=== PATIENT | male | born 1960 | race Caucasian/White ===

== ENCOUNTER 2017-12-20 02:31 | Emergency (ER) | payer SELFPAY ==
[2017-12-20] MEDS ORDERED: Metoclopramide 10 MG/2 ML SDV IVPUSH ONE (02:46)
--- NOTE | 2017-12-20 02:49 | EDM.PDOC ---
ED HPI GENERAL MEDICAL PROBLEM - General Chief Complaint: Head Injury Stated Complaint: [facility] Time Seen by Provider: 12/20/17 02:44 Source of Information: Reports: Patient History Limitations: Reports: Intoxication - History of Present Illness INITIAL COMMENTS - FREE TEXT/NARRATIVE: 56-year-old male reports that he's not sure what happened. Report by paramedics indicate that he got up from a barstool ,lost his balance and fell backwards striking his head hard on the floor. There is some suggestion of transient loss of consciousness. Patient is unsure of what happened to him. He reports that he' s been drinking very heavily tonight. Mostly beers with a few shots. Occurred in [facility]. Has some pain throughout his cervical spine but denies pain in any other body parts. There are no open lacerations . 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 He's also had a previous occipital craniotomy. Onset: Today Onset Date: 12/20/17 Onset Time: 01:20 Duration: Minutes: Location: Reports: Head, Neck Quality: Reports: Ache Severity: Mild Improves with: Reports: None Worsens with: Reports: None Context: Reports: Trauma (After negative heavy drinking and got up from his barstool lost his balance and fell backward striking his head hard on [place] floor. Reported transient loss of consciousness for 1-2 minutes.) Associated Symptoms: Reports: No Other Symptoms. 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 [Unable to Verify Home Med List] 12/20/17 [History] Past Medical History Neurological History: Reports: CVA, Other (See Below) (From cocaine use. Review 6 simple craniotomy for unclear etiology. Possibly a cerebellar hemorrhage.) Social & Family History - Living Situation & Occupation Living situation: Reports: Single Occupation: Unemployed ED ROS GENERAL - Review of Systems Review Of Systems: See Below (Unable to obtain with any certainty due to the patient being significantly intoxicated by alcohol.) Constitutional: Denies: Fever, Chills, Malaise, Weakness HEENT: Reports: Other (Days that he's had a previous stroke and that his balance is not good at times.) Respiratory: Reports: Cough, Sputum Cardiovascular: Reports: No Symptoms Endocrine: Reports: No Symptoms GI/Abdominal: Reports: Other (Some problems with gastroesophageal reflux disease.). Denies: Abdominal Pain : Reports: Frequency Musculoskeletal: Reports: Neck Pain (Chronically.), Shoulder Pain (At times), Back Pain Skin: Reports: No Symptoms Neurological: Reports: Dizziness Psychiatric: Reports: No Symptoms (States he loses his balance easily since he had brain surgery.) Hematologic/Lymphatic: Reports: No Symptoms ED EXAM, HEAD INJURY - Physical Exam Exam: See Below Exam Limited By: Intoxication (Patient is very intoxicated by alcohol. Speech is very dysarthric and hard to understand. He indicates that he was drinking heavily for at least 6 hours and the bar last evening. He really doesn't have any recollection of what happened to him or why he fell to the ground.) General Appearance: Lethargic, Mild Distress Head: Scalp Swelling (Has a hematoma right occipital scalp. His approximate 4 cm in diameter), Scalp Hematoma. No: Active Bleeding, Hernandez's Sign (4 cm in diameter over the right occipital scalp.), Flap, Facial Abrasions, Facial Ecchymosis, Facial Lacerations, Facial Swelling, Sinus Tenderness, Facial Tenderness Nexus Criteria: Posterior, Midline Cervical Tenderness, Evidence of Intoxication. No: Focal Neurological Deficit Eyes: Bilateral Eye: Normal Inspection, Nystagmus (On lateral gaze bilaterally.) Ears: Normal External Exam, Normal Canal, Hearing Grossly Normal, Normal TMs Nose: Normal Inspection, Normal Mucousa Throat/Mouth: Normal Inspection, Normal Lips, Normal Oropharynx, Other (Teeth are in need of repair) Neck: Paraspinous Muscle Tender (Tender left paraspinal muscles. He has full unopposed range of motion however he is significantly intoxicated.) Respiratory: No Respiratory Distress, Lungs Clear, Normal Breath Sounds, Chest Non-Tender, Other (No pain on compression of sternum or ribs. No evidence of abrasions or contusions to his back) Cardiovascular: Normal Peripheral Pulses ( or anterior thorax.), Regular Rate, Rhythm, No Edema, No Gallop, No Murmur, No Rub GI/Abdominal Exam: Normal Bowel Sounds, Soft, Non-Tender, No Organomegaly, No Abnormal Bruit, No Mass Back Exam: Normal Inspection, Full Range of Motion, Other (No abrasions or contusions to his mid or lower back). No: CVA Tenderness (L), CVA Tenderness (R ) Extremities: Normal Inspection, Normal Range of Motion, Non-Tender, No Pedal Edema Neurologic: No Motor/Sensory Deficits. No: Oriented x 3 (Or not oriented to time.) Skin: Normal Color, Warm/Dry - [place] Coma Score Best Eye Response (Evie): (4) Open Spontaneously Best Verbal Response (Evie): (4) Confused Conversation Best Motor Response (Evie): (6) Obeys Commands [place] Total: 14 Course - Vital Signs Last Recorded V/S: Last Vital Signs Temp 36.1 C 12/20/17 02:32 Pulse 84 12/20/17 09:10 Resp 16 12/20/17 09:10 BP 124/78 12/20/17 09:10 Pulse Ox 93 L 12/20/17 09:10 - Orders/Labs/Meds Labs: Laboratory Tests 12/20/17 12/20/17 Range/Units 03:18 03:18 WBC 7.91 (4.23-9.07) K/mm3 RBC 4.87 (4.63-6.08) M/mm3 Hgb 15.0 (13.7-17.5) gm/L Hct 42.7 (40.1-51.0) % MCV 87.7 (79.0-92.2) fl MCH 30.8 (25.7-32.2) pg MCHC 35.1 (32.2-35.5) g/dl RDW Std Deviation 41.4 (35.1-43.9) fL Plt Count 149 L (163-337) K/mm3 MPV 10.4 (9.4-12.3) fl Neutrophils % (Manual) 64 H (40-60) % Band Neutrophils % 0 (0-10) % Lymphocytes % (Manual) 23 (20-40) % Atypical Lymphs % 6 % Monocytes % (Manual) 5 (2-10) % Eosinophils % (Manual) 1 (0.8-7.0) % Basophils % (Manual) 1 (0.2-1.2) Platelet Estimate Adequate Plt Morphology Comment Normal RBC Morph Comment Normal Sodium 135 L (136-145) mEq/L Potassium 3.7 (3.5-5.1) mEq/L Chloride 100 (98-107) mEq/L Carbon Dioxide 21 (21-32) mEq/L Anion Gap 17.7 H (5-15) BUN 11 (7-18) mg/dL Creatinine 0.7 (0.7-1.3) mg/dL Est Cr Clr Drug Dosing 118.77 mL/min Estimated GFR (MDRD) > 60 (>60) mL/min BUN/Creatinine Ratio 15.7 (14-18) Glucose 141 H (74-106) mg/dL Calcium 8.8 (8.5-10.1) mg/dL Magnesium 2.1 (1.8-2.4) mg/dl Total Bilirubin 1.0 (0.2-1.0) mg/dL AST 27 (15-37) U/L ALT 39 (16-63) U/L Alkaline Phosphatase 62 (46-116) U/L Total Protein 7.7 (6.4-8.2) g/dl Albumin 4.0 (3.4-5.0) g/dl Globulin 3.7 gm/dL Albumin/Globulin Ratio 1.1 (1-2) Ethyl Alcohol 0.22 (0.00) gm% Meds: Medications Discontinued Medications Generic Name Dose Route Start Last Admin Trade Name Freq PRN Reason Stop Dose Admin Dextrose/Sodium Chloride 1,000 mls @ 125 mls/hr 12/20/17 03:00 12/20/17 03:05 Dextrose 5%-Normal Saline IV 125 mls/hr ASDIRECTED ALLEGRA Administration Lorazepam 1 mg 12/20/17 03:47 12/20/17 09:20 Ativan IVPUSH 12/20/17 03:48 Not Given ONETIME ONE Metoclopramide HCl 10 mg 12/20/17 02:46 12/20/17 03:03 Reglan IVPUSH 12/20/17 02:47 10 mg ONETIME ONE Administration - Radiology Interpretation Free Text/Narrative:: 56-year-old male brought to the ED per ambulance from [place]. Apparently this gentleman was in the local bar drinking heavily over the last 6 hours. He has no recollection of what has happened to him. The eminence reports there were summoned to the bar due to a patron haven't fallen and lying on the floor was reported transient loss of consciousness. When they arrived he was supine laying on his back. He had a palpable hematoma on his scalp. He was alert and able to answer most of their questions. There have been no vomiting on scene. Fairly he was not involved in any physical altercations. On my examination here he is significantly intoxicated by alcohol. He does have a 4 cm hematoma over his right occipital scalp. He has some left-sided paracervical muscle tenderness on examination but full unopposed range of motion. No other injuries were identified in his upper back low back arms elbows wrists pelvis or lower extremities. Plan CT head CT cervical spine to be done. Routine labs will be obtained including a blood alcohol level. IV will be D5 normal saline at 150 mils per hour. He will be given Reglan 7.5 mg IV. - Re-Assessments/Exams Free Text/Narrative Re-Assessment/Exam: 12/20/17 03:25: CT head reveals no intracranial bleeding or mass effect. No skull fractures are identified. Patient has had previous occipital craniotomy with significant encephalomalacia within the mid cerebellar region. Presumably this is postsurgical in nature. CT of his cervical spine reveals advanced degenerative changes at multiple levels. No fractures are identified. Patient is somewhat disoriented and voided all over the bed in the floor. Rarely he has no family members that are coming to pick him up. He will therefore remain in the ED for the remainder the night due to his severe intoxication with alcohol. Thought given to giving him Ativan 1 mg IV to facilitate sedation overnight but by the time the medication was drawn up the patient was fast asleep 12/20/17 04:05 Labs reveal a normal white count at 7.91. Differential is pending. Hemoglobin is 15.0 with hematocrit of 42.7. Reticulocyte count is 149, 000. MCV is 87.7. Sodium is 135 with a potassium of 3.7. Chloride is 100 with a bicarbonate of 21. Anion gap is elevated at 17.7. BUN is 11 creatinine is 0.7. GFR is greater than 60. Glucose is 141. Calcium is 8.8. Magnesium normal at 2.1. Liver function is normal. Blood alcohol is currently 0.22 g percent 12/20/17 04:43 vital signs remained stable. He remains asleep. He will remain in the ED until he is walking and talking. Patient has lost control his bladder on 2 occasions during his stay in the ED. The nurses at therefore placed him in a depends. At present we cannot find any family members associate with the patient to arrange transport back to [place]. It appears that he will have to wait sobriety so that he would be able to drive his own car from [place]. He will likely require a taxi ride to that facility. He currently is residing in [place], [place] 12/20/17 06:15 remains fast asleep with stable vital signs. Departure - Departure Time of Disposition: 09:50 Disposition: Home, Self-Care 01 Condition: Fair Clinical Impression: Closed head injury without concussion Qualifiers: Encounter type: initial encounter Qualified Code(s): S09.90XA - Unspecified injury of head, initial encounter Hematoma of scalp Qualifiers: Encounter type: initial encounter Qualified Code(s): S00.03XA - Contusion of scalp, initial encounter - Discharge Information Instructions: Head Injury, Adult, Hematoma, [id number] Referrals: PCP,None [Primary Care Provider] - Forms: ED Department Discharge Additional Instructions: Evaluation in the emergency room tonight after you lost her balance in the [place] bar and fell backward striking her head quite hard on the bar room floor. There was some report of possible transient loss of consciousness. This cannot be confirmed however. You admit to excessive alcohol use last evening and cannot remember exactly what transpired. [facility]. You were identified to have a hematoma or collection of blood on your right occipital scalp. He also had some diffuse cervical neck pain which she report you have chronically. No other injuries or signs of trauma were identified on examination. Investigations included a CT of the head which shows evidence of previous injury and surgery to the cerebellum in the back of your head. This likely means you have problems with balance control at the best of times. There were no signs of new skull fractures or intracranial bleeding or mass effect. Similarly CT scan of the neck bones reveals advanced degenerative arthritic changes at multiple levels but no broken bones. To have a much more stiff and sore neck over the next 24-48 hours. You may or may not suffer a headache from closed head injury. His time there is no evidence of concussion. Blood alcohol was 0.22 g percent meetings that she were not able to drive your motor vehicle until under 0.6 g percent which will be about 10:30 this morning.
[2017-12-20] MEDS ORDERED: Dextrose 5%-0.9% NaCl 1,000 ML IV SCH (03:00)
[2017-12-20] MEDS ORDERED: LORazepam 2 MG/ML MDV IVPUSH ONE (03:47)
--- NOTE | 2017-12-20 11:53 | CT ---
Head CT Technique: Multiple axial sections through the brain were obtained. Intravenous contrast was not utilized. Comparison: No previous intracranial imaging is available. Findings: Previous suboccipital craniotomy defect is seen. Encephalomalacia is seen within the inferior mid cerebellum presumably from prior surgery. Mild generalized atrophy is seen of the cerebellum. No abnormal parenchymal densities are seen supratentorially. No midline shift or mass effect is seen. No evidence of intracranial hemorrhage. No acute calvarial abnormality is seen. There is moderate mucosal thickening seen within the left ethmoid sinuses with mild mucosal thickening noted within the left frontal and within both sides of the sphenoid sinus. Mastoid sinuses are clear. Impression: 1. Sinus disease which is most likely chronic. 2. Previous surgery as described above. 3. No acute intracranial abnormality is appreciated. Diagnostic code #3 Agree with preliminary report issued by [employer] ([facility] preliminary report dictated on 12/20/17, 4:22 AM Central Time)
--- NOTE | 2017-12-20 11:58 | CT ---
CT cervical spine Technique: Multiple axial sections were obtained from above C1 inferiorly to the bottom of T1. Reconstructed sagittal and coronal images were reviewed. Comparison: No prior cervical spine imaging. Findings: Suboccipital craniotomy is noted. Degenerative change is noted between the dens and anterior arch of C1. Severe disc space narrowing at C5-C6. Degenerative cysts are seen within C5 and C6. Posterior spurring and anterior osteophytes are noted at C5-C6. Anterior osteophytes with mild disc space narrowing is seen at C6-C7. Degenerative apophyseal change is seen most prominent within the upper cervical spine. Mild to moderate bilateral neural foraminal stenosis is noted at C5-C6. Mild left-sided neural foraminal stenosis is noted at C4-C5. Other neural foramina are patent. No bony central canal stenosis is seen. No fracture is seen. No abnormal subluxation is identified. Impression: 1. Previous suboccipital craniotomy. 2. Degenerative change within the cervical spine as described above. 3. No acute abnormality is seen within the cervical spine. Diagnostic code #2 I agree with preliminary report issued by [facility] ([facility] preliminary report dictated on 12/20/17, 4:25 AM Central Time)
== END 2017-12-20 09:29 | disposition home or self-care (01) ==
LOC: JD.ED 02:31
DX: S09.90XA Unspecified injury of head, initial encounter (principal); S00.03XA Contusion of scalp, initial encounter; K21.9 Gastro-esophageal reflux disease without esophagitis; Z87.820 Personal history of traumatic brain injury; W08.XXXA Fall from other furniture, initial encounter
CPT/HCPCS: 36415; 70450; 72125; 80053; 83735; 85025; 96361; 96374; 99285; G0480; J2765; J7042

== ENCOUNTER 2019-03-05 20:34 | Emergency (ER) | payer MEDICARE ==
[2019-03-05] MEDS ORDERED: Lidocaine 1% 20 ML MDV INJECT ONE (21:50)
[2019-03-05] MEDS ORDERED: Diphtheria,Pertussis(Acell),Tetanus Vaccine 0.5 ML Syringe IM ONE (21:51)
[2019-03-05] MEDS ORDERED: Lidocaine 1% 50 ML MDV ONE (21:54)
--- NOTE | 2019-03-05 22:19 | EDM.PDOC ---
ED HPI GENERAL MEDICAL PROBLEM - General Chief Complaint: Laceration Stated Complaint: CUT LEFT ARM Time Seen by Provider: 03/05/19 21:14 - History of Present Illness INITIAL COMMENTS - FREE TEXT/NARRATIVE: 58-year-old male presents emergency room with a laceration to his left forearm. 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 He has a couple superficial scratches on the dorsal aspect of his arm but that main one is on the anterior lateral aspect of his arm into the subcutaneous tissue. Patient denies any other injuries associated with this. Patient is uncertain when his last tetanus shot was. Left Arm Pain Score (Numeric/FACES): 4 - Related Data Allergies Allergy/AdvReac Type Severity Reaction Status Date / Time No Known Allergies Allergy Verified 12/20/17 02:37 Home Meds: Home Meds . 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 Social & Family History - Tobacco Use Smoking Status *Q: Current Every Day Smoker Years of Tobacco use: 10 Packs/Tins Daily: 0.5 - Caffeine Use Caffeine Use: Reports: Coffee, Energy Drinks, Soda - Recreational Drug Use Recreational Drug Use: No - Living Situation & Occupation Living situation: Reports: Single Occupation: Unemployed ED ROS GENERAL - Review of Systems Review Of Systems: See Below Constitutional: Reports: No Symptoms HEENT: Reports: No Symptoms Respiratory: Reports: No Symptoms Cardiovascular: Reports: No Symptoms Endocrine: Reports: No Symptoms GI/Abdominal: Reports: No Symptoms : Reports: No Symptoms ED EXAM, SKIN/RASH Exam: See Below Exam Limited By: No Limitations General Appearance: Alert, No Apparent Distress Head: Atraumatic, Normocephalic Neck: Normal Inspection, Supple, Non-Tender, Full Range of Motion Respiratory/Chest: No Respiratory Distress, Lungs Clear, Normal Breath Sounds Cardiovascular: Regular Rate, Rhythm, No Edema, No Murmur Extremities: Other (Examination of the left upper extremity shows good range of motion of at the shoulder or elbow hands and wrists. He's had a 8 cm laceration on the anterior lateral aspect of the upper forearm. This is curvilinear and has a dog leg proximally. It is contaminated) ED SKIN PROCEDURES - Laceration/Wound Repair Left Arm Lac/Wound length In cm: 8 Appearance: Stellate, Mildly Contaminated Distal NVT: Neuro & Vascular Intact Anesthetic Type: Local Local Anesthesia - Lidocaine (Xylocaine): 1% Plain Skin Prep: Chlorhexidine (Hibiciens), Saline Exploration/Debridement/Repair: Wound Explored, In a Bloodless Field, Explored to Base, Moderate Debridement Closed with: Ronny (9 ronny used yielding good closure) Course - Vital Signs Last Recorded V/S: Last Vital Signs Temp 36.5 C 03/05/19 21:14 Pulse 77 03/05/19 21:14 Resp 20 03/05/19 21:14 BP 130/93 H 03/05/19 21:14 Pulse Ox 93 L 03/05/19 21:14 - Orders/Labs/Meds Orders: Active Orders 24 hr Category Date Time Status Vaccines to be Administered [RC] PER UNIT ROUTINE Care 03/05/19 21:51 Active Meds: Medications Discontinued Medications Generic Name Dose Route Start Last Admin Trade Name Freq PRN Reason Stop Dose Admin Diphtheria/Tetanus/Acell Pertussis 0.5 ml 03/05/19 21:51 Adacel IM 03/05/19 21:52 .ONCE ONE Lidocaine HCl 20 ml 03/05/19 21:50 Xylocaine 1% INJECT 03/05/19 21:51 ONETIME ONE Lidocaine HCl Confirm 03/05/19 21:54 Xylocaine 1% Administered 03/05/19 21:55 Dose 50 ml .ROUTE .STK-MED ONE - Re-Assessments/Exams Free Text/Narrative Re-Assessment/Exam: 03/05/19 22:19 Patient tolerated the wound cleaned using closure without difficulty 15 mL of 1 % lidocaine were used prior to debridement and this held on long enough to get the ronny and without difficulty Departure - Departure Time of Disposition: 22:19 Disposition: Home, Self-Care 01 Clinical Impression: Laceration of left forearm - Discharge Information Referrals: PCP,None [Primary Care Provider] - Forms: ED Department Discharge Additional Instructions: Return to the emergency room with any questions problems worsening symptoms. Follow-up in the clinic in 12 days to have the ronny removed. Return sooner if you are concerned that it might be getting infected. Keep the area clean and dry for the next 72 hours after 72 hours he can little water gently rotated over the area but then gently dab dry continue to keep dry. - My Orders Last 24 Hours: My Active Orders 03/05/19 21:51 Vaccines to be Administered [RC] PER UNIT ROUTINE - Assessment/Plan Last 24 Hours: My Active Orders 03/05/19 21:51 Vaccines to be Administered [RC] PER UNIT ROUTINE
[2019-03-05] MEDS ORDERED: Lidocaine 1% 50 ML MDV INJECT ONE (22:23)
== END 2019-03-05 22:30 | disposition home or self-care (01) ==
LOC: JD.ED 20:34
DX: S51.812A Laceration without foreign body of left forearm, initial encounter (principal); Z23 Encounter for immunization; F17.210 Nicotine dependence, cigarettes, uncomplicated; W29.0XXA Contact with powered kitchen appliance, initial encounter
CPT/HCPCS: 12004; 90471; 90700; 99283; J2001; 99282

== ENCOUNTER 2019-12-13 18:57 | Emergency (ER) | payer MEDICARE | END 2019-12-13 22:35 | disposition EXP | LOC: JD.ED 18:57 | CPT/HCPCS: 99281 ==